=== PATIENT | male | born 1995 | race Caucasian/White ===

== ENCOUNTER 2016-08-27 09:50 | Emergency (ER) | payer BC ==
[~2016-08-27] VITALS: Ht 177.8 cm; Wt 74.8 kg
[2016-08-27 09:51] VITALS: BP 148/73
[2016-08-27] MEDS ORDERED: AMOX875T PO (10:00)
[2016-08-27] MEDS ORDERED: TYLE325T5 PO (10:48)
== END 2016-08-27 11:01 | disposition home or self-care (01) ==
LOC: M ED 09:50
DX: K02.9 Dental caries, unspecified (principal); F17.210 Nicotine dependence, cigarettes, uncomplicated; F12.20 Cannabis dependence, uncomplicated

== ENCOUNTER → 2016-11-30 | Outpatient (REF) | payer BC ==
[~2016-11-30] MED LIST: AMOX875T PO; TYLE325T5 PO
[2016-12-01 13:30] LABS: HEPATITIS B SURFACE ANTIBODY NEGATIVE (POSITIVE)
[2016-12-03 14:36] LABS: HEPATITIS C QUANTITATION HCV Not Detected IU/mL (.)
== END ==
LOC: M LAB REF 12:37
PROVIDERS: ATTEND Nurse Practitioner Adult Health
DX: Z11.3 Encounter for screening for infections with a predominantly sexual mode of transmission (principal)

== ENCOUNTER 2017-02-21 20:37 | Emergency (ER) | payer SELFPAY, BC, OTHER | END 2017-02-21 22:57 | disposition home or self-care (01) | LOC: M ED 20:37 | DX: T33.831A Superficial frostbite of right toe(s), initial encounter (principal); Y92.59 Other trade areas as the place of occurrence of the external cause; Y99.0 Civilian activity done for income or pay; F17.210 Nicotine dependence, cigarettes, uncomplicated | CPT/HCPCS: 99284 ==

== ENCOUNTER 2017-12-07 14:44 | Emergency (ER) | payer SELFPAY | END 2017-12-07 16:44 | disposition home or self-care (01) | LOC: M ED 14:44 | DX: L05.01 Pilonidal cyst with abscess (principal); N39.0 Urinary tract infection, site not specified; F17.200 Nicotine dependence, unspecified, uncomplicated | CPT/HCPCS: 87186 ==

== ENCOUNTER → 2018-06-16 | Outpatient (CLI) | payer SELFPAY ==
[~2018-06-16] MED LIST changes: +BACT800T5 PO; +KETO10TAB PO; +SUBO2MIS SL
== END ==
LOC: M OUTALCOH 07:57
PROVIDERS: ATTEND Psychiatry & Neurology Psychiatry
DX: Z03.89 Encounter for observation for other suspected diseases and conditions ruled out (principal)

== ENCOUNTER 2018-06-27 08:57 | Outpatient (RCR) | payer SELFPAY | END 2018-07-07 | LOC: M OUTALCOH 08:57 | PROVIDERS: ATTEND Psychiatry & Neurology Psychiatry | DX: Z03.89 Encounter for observation for other suspected diseases and conditions ruled out (principal); F17.200 Nicotine dependence, unspecified, uncomplicated ==

== ENCOUNTER 2019-05-18 10:16 | Emergency (ER) | payer OTHER, SELFPAY ==
[~2019-05-18] VITALS: Ht 177.8 cm; Wt 88.8 kg
[2019-05-18] MEDS ORDERED: ACETAMINOPHEN 325 MG TAB PO ONE (11:15)
[2019-05-18 11:58] LABS: BASO % 0.2 % (0.0-1.0); EOS % 0.2 % (0.0-3.0); HEMATOCRIT 43.4 % (42.0-52.0); LYMPH # 1.3 10^3/uL (1.5-5.0); LYMPH % 14.9 % (24.0-44.0); MEAN CORPUSCULAR HEMOGLOBIN 29.2 pg (27.0-33.0); MEAN CORPUSCULAR HGB CONC 34.6 g/dl (32.0-36.5); MEAN CORPUSCULAR VOLUME 84.4 fl (80.0-96.0); MONO # 0.7 10^3/uL (0.0-0.8); MONO % 7.3 % (0.0-5.0); NEUTROPHILS # 6.9 10^3/uL (1.5-8.5); PLATELET COUNT, AUTOMATED 115 10^3/uL (150-450); RED BLOOD COUNT 5.14 10^6/uL (4.30-6.10)
[2019-05-18 12:21] LABS: BLOOD UREA NITROGEN 14 MG/DL (7-18); CALCIUM LEVEL 9.2 MG/DL (8.5-10.1); CARBON DIOXIDE LEVEL 25 MEQ/L (21-32); CHLORIDE LEVEL 103 MEQ/L (98-107); CREATININE FOR GFR 0.87 MG/DL (0.70-1.30); GLOMERULAR FILTRATION RATE > 60.0 (>60); GLUCOSE, FASTING 82 MG/DL (70-100); POTASSIUM SERUM 4.1 MEQ/L (3.5-5.1); SODIUM LEVEL 135 MEQ/L (136-145)
[2019-05-18 12:34] LABS: MONO REFLEX EBV COMP NEGATIVE (NEGATIVE)
[2019-05-18] MEDS ORDERED: PENI500T PO (13:06)
[2019-05-18 13:57] VITALS: BP 139/83
[2019-05-19 14:12] LABS: EBV VIRAL CAPSID AG IgG >600.0 U/mL (0.0-17.9); EBV VIRAL CAPSID AG IgM <36.0 U/mL (0.0-35.9)
== END 2019-05-18 14:06 | disposition home or self-care (01) ==
LOC: M ED 10:16
DX: Z20.828 Contact with and (suspected) exposure to other viral communicable diseases (principal); J02.9 Acute pharyngitis, unspecified; B00.2 Herpesviral gingivostomatitis and pharyngotonsillitis; F17.200 Nicotine dependence, unspecified, uncomplicated
CPT/HCPCS: 80048; 85025; 86308; 86664; 86665; 87252; 87486; 87581; 87633; 87798; 87880; 99284; U0002

== ENCOUNTER 2019-11-18 11:18 | Emergency (ER) | payer MEDICAID, SELFPAY ==
[~2019-11-18] VITALS: Ht 177.8 cm; Wt 82.9 kg
[~2019-11-18 11:18] MED LIST changes: +PENI500T PO
[2019-11-18] MEDS ORDERED: ASPIRIN 81 MG CHEW TABLET PO ONE (12:00)
[2019-11-18] MEDS ORDERED: NS 1,000 ML IV ONE (12:00)
[2019-11-18 12:08] LABS: BASO % 0.4 % (0.0-1.0); EOS # 0.3 10^3/uL (0.0-0.5); EOS % 3.9 % (0.0-3.0); HEMATOCRIT 46.4 % (42.0-52.0); HEMOGLOBIN 15.9 g/dl (13.5-17.5); LYMPH # 1.8 10^3/uL (1.5-5.0); LYMPH % 24.5 % (24.0-44.0); MEAN CORPUSCULAR HEMOGLOBIN 29.1 pg (27.0-33.0); MEAN CORPUSCULAR HGB CONC 34.3 g/dl (32.0-36.5); MEAN CORPUSCULAR VOLUME 84.8 fl (80.0-96.0); MONO # 0.4 10^3/uL (0.0-0.8); MONO % 5.4 % (0.0-5.0); NEUTROPHILS # 4.8 10^3/uL (1.5-8.5); NEUTROPHILS % 65.4 % (36.0-66.0); PLATELET COUNT, AUTOMATED 191 10^3/uL (150-450); RED BLOOD COUNT 5.47 10^6/uL (4.30-6.10); WHITE BLOOD COUNT 7.4 10^3/uL (4.0-10.0)
[2019-11-18 12:19] LABS: INR 1.02; PROTHROMBIN TIME 13.6 SECONDS (12.5-14.3)
[2019-11-18 12:36] LABS: ALBUMIN 4.7 GM/DL (3.2-5.2); ALT/SGPT 29 U/L (12-78); BILIRUBIN,DIRECT 0.3 MG/DL (0.0-0.2); BILIRUBIN,TOTAL 1.6 MG/DL (0.2-1.0); BLOOD UREA NITROGEN 15 MG/DL (7-18); CALCIUM LEVEL 9.6 MG/DL (8.5-10.1); CARBON DIOXIDE LEVEL 26 MEQ/L (21-32); CHLORIDE LEVEL 107 MEQ/L (98-107); CK-MB VALUE MASS 2.5 NG/ML (<3.6); CPK CREATINE PHOSPHOKINASE 241 U/L (39-308); CREATININE FOR GFR 0.92 MG/DL (0.70-1.30); GLOMERULAR FILTRATION RATE > 60.0 (>60); GLUCOSE, FASTING 117 MG/DL (70-100); MB/CK RELATIVE INDEX 1.04 (< OR =4); SODIUM LEVEL 139 MEQ/L (136-145); TOTAL PROTEIN 8.3 GM/DL (6.4-8.2); TROPONIN I < 0.02 NG/ML (< 0.10)
--- NOTE | 2019-11-18 12:36 | REPVR ---
PROCEDURE INFORMATION: Exam: XR Chest, 2 Views Exam date and time: 11/18/2019 12:02 PM Age: 23 years old Clinical indication: Chest pain TECHNIQUE: Imaging protocol: XR of the chest Views: 2 views. COMPARISON: CR Chest, 2 view PA, Lat 09/18/2019 11:49 AM (report not provided) FINDINGS: Lungs: Unremarkable. No consolidation. Pleural space: Unremarkable. No pleural effusion. No pneumothorax. Heart/Mediastinum: The cardiomediastinal silhouette is fairly stable in appearance. Bones/joints: Unremarkable. IMPRESSION: No evidence for acute pulmonary disease. Electronically signed by: Tico Valdovinos On 11/18/2019 12:36:02 PM
[2019-11-18] MEDS ORDERED: OMEP40CA97 PO (12:51)
[2019-11-18 13:02] VITALS: BP 144/72
--- NOTE | 2019-11-18 13:20 | ECGEPIP ---
[facility] - ED Test Date: 2019-11-18 Pat Name: SONIA MAY Department: Room: - Gender: Male Web Engineer: KODY : [id number] Requested By: GEMMA KIRKLAND Order Number: [id number] Reading MD: Alma Delgado Measurements Intervals [place] Rate: 83 P: 55 IN: 149 QRS: 25 QRSD: 94 T: 33 QT: 356 QTc: 421 Interpretive Statements SINUS RHYTHM WITH SINUS ARRHYTHMIA No prior Electronically Signed on 11-18-2019 13:19:59 EDT by Alma Delgado
== END 2019-11-18 13:04 | disposition home or self-care (01) ==
LOC: M ED 11:18
DX: K21.9 Gastro-esophageal reflux disease without esophagitis (principal); F17.200 Nicotine dependence, unspecified, uncomplicated; R51.9 Headache, unspecified

== ENCOUNTER → 2019-12-19 | Outpatient (REF) | payer OTHER, MEDICAID ==
[~2019-12-19] MED LIST changes: +OMEP40CA97 PO
[2019-12-19 17:30] LABS: BASO % 0.6 % (0.0-1.0); EOS # 0.4 10^3/uL (0.0-0.5); EOS % 4.9 % (0.0-3.0); HEMATOCRIT 49.1 % (42.0-52.0); HEMOGLOBIN 16.4 g/dl (13.5-17.5); LYMPH % 27.5 % (24.0-44.0); MEAN CORPUSCULAR HEMOGLOBIN 29.3 pg (27.0-33.0); MEAN CORPUSCULAR HGB CONC 33.4 g/dl (32.0-36.5); MEAN CORPUSCULAR VOLUME 87.7 fl (80.0-96.0); MONO # 0.4 10^3/uL (0.0-0.8); MONO % 5.8 % (0.0-5.0); NEUTROPHILS # 4.3 10^3/uL (1.5-8.5); NEUTROPHILS % 60.8 % (36.0-66.0); PLATELET COUNT, AUTOMATED 193 10^3/uL (150-450); WHITE BLOOD COUNT 7.1 10^3/uL (4.0-10.0)
[2019-12-19 17:34] LABS: ALBUMIN 4.8 GM/DL (3.2-5.2); ALT/SGPT 55 U/L (12-78); BILIRUBIN,TOTAL 0.4 MG/DL (0.2-1.0); BLOOD UREA NITROGEN 16 MG/DL (7-18); CALCIUM LEVEL 10.2 MG/DL (8.5-10.1); CARBON DIOXIDE LEVEL 28 MEQ/L (21-32); CHLORIDE LEVEL 106 MEQ/L (98-107); GLOMERULAR FILTRATION RATE > 60.0 (>60); GLUCOSE, FASTING 96 MG/DL (70-100); POTASSIUM SERUM 4.9 MEQ/L (3.5-5.1); SODIUM LEVEL 139 MEQ/L (136-145); TOTAL PROTEIN 8.1 GM/DL (6.4-8.2)
[2019-12-19 17:42] LABS: TOTAL 25(OH) VITAMIN D 16.8 NG/ML (30.0-100.0)
[2019-12-19 18:58] LABS: HEMOGLOBIN A1c 5.1 %
== END ==
LOC: M LAB REF 16:41
PROVIDERS: ATTEND Nurse Practitioner Family
DX: Z00.00 Encounter for general adult medical examination without abnormal findings (principal); F41.3 Other mixed anxiety disorders; Z13.228 Encounter for screening for other metabolic disorders; R21 Rash and other nonspecific skin eruption

== ENCOUNTER → 2022-01-11 | Outpatient (CLI) | payer BC, MEDICAID ==
[~2022-01-11] MED LIST changes: +OMEP40CA4 PO; -OMEP40CA97 PO
[2022-01-11 11:47] LABS: THYROID STIMULATING HORMONE 1.416 uIU/ML (0.55-4.78)
[2022-01-11 11:48] LABS: ALBUMIN 4.3 G/DL (3.2-5.2); ALKALINE PHOSPHATASE 74 U/L (46-116); ALT/SGPT 42 U/L (7.0-40); AST/SGOT 27 U/L (<34); BILIRUBIN,TOTAL 0.5 MG/DL (0.3-1.2); BLOOD UREA NITROGEN 13 MG/DL (9-23); CALCIUM LEVEL 9.8 MG/DL (8.5-10.1); CARBON DIOXIDE LEVEL 30 MMOL/L (20-31); CHLORIDE LEVEL 105 MMOL/L (98-107); CHOLESTEROL LEVEL 171 MG/DL (<200); CHOLESTEROL RISK RATIO 5.87 (<5); CREATININE FOR GFR 0.86 MG/DL (0.70-1.30); GLOMERULAR FILTRATION RATE > 60.0 (>60); GLUCOSE, FASTING 93 MG/DL (60-100); HDL CHOLESTEROL 29.1 MG/DL (>40); LDL CHOLESTEROL 112.9 MG/DL (<100); NON-HDL-C 142 MG/DL; SODIUM LEVEL 141 MMOL/L (136-145); TOTAL 25(OH) VITAMIN D 21.3 NG/ML (20.0-100.0); TOTAL PROTEIN 7.2 G/DL (5.7-8.2); TRIGLYCERIDES LEVEL 145 MG/DL (<150)
[2022-01-11 12:13] LABS: HIV 1&2 SCREEN CENTAUR NEGATIVE (NEGATIVE)
[2022-01-11 12:21] LABS: HEPATITIS C VIRUS ABY INDEX 0.1 INDEX (<0.8)
== END ==
LOC: M LAB 10:15
PROVIDERS: ATTEND Nurse Practitioner Family
DX: Z13.228 Encounter for screening for other metabolic disorders (principal)

== ENCOUNTER → 2024-03-29 | Outpatient (CLI) | payer BC ==
[2024-03-29 13:05] LABS: ALBUMIN 4.1 G/DL (3.2-5.2); ALKALINE PHOSPHATASE 82 U/L (40-129); ALT/SGPT 65 U/L (7.0-40); AST/SGOT 32 U/L (<34); BILIRUBIN,TOTAL 0.5 MG/DL (0.3-1.2); BLOOD UREA NITROGEN 11 MG/DL (9-23); CARBON DIOXIDE LEVEL 29 MMOL/L (20-31); CHLORIDE LEVEL 107 MMOL/L (98-107); CHOLESTEROL LEVEL 215 MG/DL (<200); CREATININE FOR GFR 0.82 MG/DL (0.70-1.30); GLOMERULAR FILTRATION RATE > 60.0 (>60); GLUCOSE, FASTING 93 MG/DL (60-100); HDL CHOLESTEROL 35.2 MG/DL (>40); LDL CHOLESTEROL 154.8 MG/DL (<100); NON-HDL-C 179.8 MG/DL; POTASSIUM SERUM 4.6 MMOL/L (3.5-5.1); SODIUM LEVEL 144 MMOL/L (136-145); TOTAL 25(OH) VITAMIN D 27.9 NG/ML (20.0-100.0); TOTAL PROTEIN 7.1 G/DL (5.7-8.2); TRIGLYCERIDES LEVEL 125 MG/DL (<150)
[2024-03-29 13:06] LABS: THYROID STIMULATING HORMONE 1.474 uIU/ML (0.55-4.78)
[2024-03-29 13:23] LABS: HEMOGLOBIN A1c 5.1 % (4.0-6.0)
== END ==
LOC: M WUC 09:37
PROVIDERS: ATTEND Nurse Practitioner Family
DX: E78.5 Hyperlipidemia, unspecified (principal); E66.9 Obesity, unspecified; E55.9 Vitamin D deficiency, unspecified; M25.562 Pain in left knee; R93.6 Abnormal findings on diagnostic imaging of limbs